=== PATIENT | male | born 1945 | race African-American/Black ===

== ENCOUNTER 2019-02-28 09:04 | Emergency (ER) | payer MEDICARE ==
[~2019-02-28] VITALS: Ht 175.3 cm; Wt 90.7 kg
[~2019-02-28 09:04] MED LIST: TRAM50TA PO
[2019-02-28 09:34] LABS: BILIRUBIN,URINE NEGATIVE (NEG); CLARITY,URINE CLEAR; COLOR,URINE YELLOW; NITRITE,URINE NEGATIVE (NEG); PH,URINE 5.5; PROTEIN,URINE NEGATIVE (NEG-TRACE)
--- NOTE | 2019-02-28 09:36 | PHYS DOC ---
Past Medical History Past Medical History: STD Past Surgical History: Other Additional Past Surgical Histo: R thumb sx Alcohol Use: None Drug Use: None Adult General Chief Complaint Chief Complaint: PENIS PROBLEM HPI HPI 73 y/o male presents to ER with complaints of dysuria which is been ongoing for several years. Patient reports he has seen a urologist for this problem but hasn't had any recent follow-up. Patient reports he thinks pain has been gradually worsening. He denies hematuria, fever, nausea or vomiting, lesions/rash, concerns for STDs, or inability to urinate. Patient reports he has had sexual intercourse within the past 48 hours and did have some pain at the tip of his penis during intercourse. Patient reports he has had no new sexual partners. Patient denies discharge. Patient denies past STD history. Patient denies taking any [id number]-[id number] medications for pain as pain has been tolerable. Review of Systems Review of Systems Constitutional: Denies fever or chills [] Eyes: Denies change in visual acuity, redness, or eye pain [] HENT: Denies nasal congestion or sore throat [] Respiratory: Denies cough or shortness of breath [] Cardiovascular: No additional information not addressed in HPI [] GI: Denies abdominal pain, nausea, vomiting, bloody stools or diarrhea [] : Denies hematuria. Reports tenderness on tap of penis without discharge or rash/lesions. Reports dysuria without difficulty of urinating Musculoskeletal: Denies back pain or joint pain [] Integument: Denies rash or skin lesions [] Neurologic: Denies headache, focal weakness or sensory changes [] All other systems were reviewed and found to be within normal limits, except as documented in this note. Allergies Allergies Allergies Coded Allergies Type Severity Reaction Last Updated Verified No Known Drug Allergies 01/05/14 No Physical Exam Physical Exam Constitutional: Well developed, well nourished, no acute distress, non-toxic appearance. [] HENT: Normocephalic, atraumatic, oropharynx moist, no oral exudates, nose normal. [] Eyes: Pupils equal, conjunctiva normal, no discharge. [] Neck: Normal range of motion, no tenderness, supple, no stridor. [] Cardiovascular: Heart rate regular rhythm, no murmur [] Lungs & Thorax: Bilateral breath sounds clear to auscultation- resp. equal/nonlabored Abdomen: Bowel sounds normal, soft, no tenderness, no masses, no pulsatile masses. [] exam with RN at bedside for mushroom spawn maker. Uncircumcised- pt was able to retract foreskin without c/o pain. No swelling. No lesions or rash. No discharge from meatus. No gross adenopathy bilateral groin. Bilateral scrotal tenderness on palpation without palpable mass/erythema/or signs of infection. 2+ bilat. femoral Skin: Warm, dry, no erythema, no rash. [] Back: No tenderness, no CVA tenderness. [] Extremities: No tenderness, no cyanosis, no clubbing, ROM intact, no edema. [] Neurologic: Alert and oriented X 3, normal motor function, normal sensory function, no focal deficits noted. [] Psychologic: Affect normal, judgement normal, mood normal. [] Current Patient Data Vital Signs Vital Signs Date Time Temp Pulse Resp B/P (MAP) Pulse Ox O2 Delivery O2 Flow Rate FiO2 02/28/19 09:38 97.8 67 18 140/63 (88) 98 Room Air 97.8 Lab Values Laboratory Tests Test 02/28/19 09:15 Urine Collection Type Unknown Urine Color Yellow Urine Clarity Clear Urine pH 5.5 Urine Specific [facility] 1.025 Urine Protein Negative mg/dL (NEG-TRACE) Urine Glucose (UA) Negative mg/dL (NEG) Urine Ketones (Stick) Negative mg/dL (NEG) Urine Blood Negative (NEG) Urine Nitrite Negative (NEG) Urine Bilirubin Negative (NEG) Urine Urobilinogen Dipstick 1.0 mg/dL (0.2 mg/dL) Urine Leukocyte Esterase Negative (NEG) Urine RBC 0 /HPF (0-2) Urine WBC 0 /HPF (0-4) Urine Squamous Epithelial Cells Occ /LPF Urine Bacteria 0 /HPF (0-FEW) EKG EKG [] Radiology/Procedures Radiology/Procedures PROCEDURE: TESTICULAR/SCROTUM Indication: Bilateral scrotal pain. TECHNIQUE: Grayscale, color Doppler and spectral waveform images of the bilateral testicles. COMPARISON: None FINDINGS: Right testicle measures 3.3 x 3.4 x 2.3 cm and is homogeneous in echogenicity and shows evidence of blood flow. Small hydrocele. 2.0 x 1.2 x 1.1 cm simple appearing cyst is seen along the inferior aspect of the right testicle which may represent a epididymal cyst. The left testicle measures 4.0 x 3.2 x 2.2 cm without focal lesion and shows evidence of blood flow. Small hydrocele. 1.2 x 1.2 x 1.0 cm extratesticular cyst is seen along the inferior aspect of the scrotum. Bilateral varicoceles. IMPRESSION: 1. Both testicles show evidence of blood flow without focal lesion. 2. Most likely bilateral extratesticular simple cysts. 3. Small bilateral hydroceles, nonspecific. 4. Bilateral varicoceles. Electronically signed by: Zay Barriga DO (02/28/2019 11:04 AM) [facility] DICTATED and SIGNED BY: ZAY BARRIGA DO DATE: 02/28/19 0725 Course & Med Decision Making Course & Med Decision Making Pertinent Labs and Imaging studies reviewed. (See chart for details) Pt was evaluated in the ER for complaints of dysuria and penis pain. Pt had no lesions or rash on exam. Ultrasound showed small hydrocele and bilateral varico barbara otherwise unremarkable imaging as pt's US is similar to prior in his records. UA negative for infection/blood. Test results were discussed with patient. Pt has denied any difficulty urinating and has specimen was concentrated. This was discussed with patient and patient encouraged to increase water intake daily. Patient advised on use of [id number] Tylenol and/or ibuprofen and will be provided with small quantity of Ultram. Patient was advised on scheduling appointment with urology for reevaluation and further care. Advised on avoiding sexual intercourse until symptoms improve to avoid further discomfort. Education provided on signs and symptoms to return to ER. Discharge instructions were discussed. Patient to follow-up with primary care kavita boudreaux if symptoms persist or with any concerns. Dragon Disclaimer Dragon Disclaimer This electronic medical record was generated, in whole or in part, using a voice recognition dictation system. Departure Departure Impression: Primary Impression: Penis pain Additional Impression: Dysuria Disposition: 01 HOME, SELF-CARE Condition: STABLE Patient Instructions: Dysuria Additional Instructions: Your tests were unremarkable for infection. It is important for you to follow-up with your urologist as discussed for reevaluation and further care. Drink plenty of water daily. Tylenol and/or ibuprofen as needed for pain as directed on container. Avoid sexual intercourse until pain and symptoms subside. Scripts Tramadol Hcl (ULTRAM) 50 Mg Tablet 50 MG PO Q6HRS PRN for PAIN, #8 TAB 0 Refills No drinking alcohol or driving while taking this medicine Prov: RODDY FUENTES APRN 02/28/19 Problem Qualifiers RODDY FUENTES APRN Feb 28, 2019 09:36
[2019-02-28 09:38] VITALS: BP 140/63
[2019-02-28 10:00] LABS: BACTERIA,URINE 0 /HPF (0-FEW); RBC,URINE 0 /HPF (0-2); WBC,URINE 0 /HPF (0-4)
[2019-02-28 10:01] LABS: SQUAMOUS EPITHELIAL CELL,UR OCC /LPF
--- NOTE | 2019-02-28 11:07 | RAD ---
Indication: Bilateral scrotal pain. TECHNIQUE: Grayscale, color Doppler and spectral waveform images of the bilateral testicles. COMPARISON: None FINDINGS: Right testicle measures 3.3 x 3.4 x 2.3 cm and is homogeneous in echogenicity and shows evidence of blood flow. Small hydrocele. 2.0 x 1.2 x 1.1 cm simple appearing cyst is seen along the inferior aspect of the right testicle which may represent a epididymal cyst. The left testicle measures 4.0 x 3.2 x 2.2 cm without focal lesion and shows evidence of blood flow. Small hydrocele. 1.2 x 1.2 x 1.0 cm extratesticular cyst is seen along the inferior aspect of the scrotum. Bilateral varicoceles. IMPRESSION: 1. Both testicles show evidence of blood flow without focal lesion. 2. Most likely bilateral extratesticular simple cysts. 3. Small bilateral hydroceles, nonspecific. 4. Bilateral varicoceles. Electronically signed by: Zay Hunter DO (02/28/2019 11:04 AM) [facility]
[2019-02-28] MEDS ORDERED: TRAM-48 PO (11:16)
== END 2019-02-28 11:45 | disposition home or self-care (01) ==
LOC: ER 09:04
DX: N48.89 Other specified disorders of penis (principal); R30.0 Dysuria
CPT/HCPCS: 76870; 81001; 87491; 87591; 99285-25

== ENCOUNTER 2021-05-03 14:31 | Emergency (ER) | payer MEDICARE, OTHER ==
[~2021-05-03] VITALS: Ht 175.3 cm; Wt 91.0 kg
[~2021-05-03 14:31] MED LIST changes: +TRAM-48 PO
--- NOTE | 2021-05-03 15:51 | RAD ---
XR BILATERAL HIP (WITH OR WITHOUT PELVIS) 2 VIEWS_RIGHT Clinical indications: Reason: pain x 2 weeks / Spl. Instructions: / History: Findings: No acute fracture or dislocation or osteolytic process is evident. IMPRESSION: No acute osseous abnormality is evident. Electronically signed by: Malik Gaviria MD (05/03/2021 3:49 PM) [id number]
[2021-05-03 16:35] VITALS: BP 138/65
--- NOTE | 2021-05-03 16:46 | PHYS DOC ---
Past Medical History Past Medical History: No Pertinent History, STD Past Surgical History: Other Additional Past Surgical Histo: R thumb sx Smoking Status: Never Smoker Alcohol Use: None Drug Use: None General Adult EDM: Chief Complaint: HIP PAIN HPI: HPI: Patient is a 76 year old female who presents the ED today complaining of 10 out of 10 right hip pain radiating to the right thigh, symptoms began a week ago. Patient reports symptoms are worse on lifting the leg up. Patient denies any injuries. Denies any numbness or tingling to bilateral lower extremities. Denies any loss of bowel/bladder function. Describes the pain as sharp and intermittent. Review of Systems: Review of Systems: Constitutional: Denies fever or chills. [] Musculoskeletal: Reports right hip pain radiating to the right thigh, denies any back pain Integument: Denies rash. [] Neurologic: Denies headache, focal weakness or sensory changes. [] ] Psychiatric: Denies depression or anxiety. [] Heart Score: C/O Chest Pain: N/A Risk Factors: Risk Factors: DM, Current or recent (<one month) smoker, HTN, HLP, family history of CAD, obesity. Risk Scores: Score 0 - 3: 2.5% MACE over next 6 weeks - Discharge Home Score 4 - 6: 20.3% MACE over next 6 weeks - Admit for Clinical Observation Score 7 - 10: 72.7% MACE over next 6 weeks - Early Invasive Strategies Allergies: Allergies: Allergies Coded Allergies Type Severity Reaction Last Updated Verified No Known Drug Allergies 01/05/14 No Physical Exam: PE: Constitutional: Well developed, well nourished, no acute distress, non-toxic appearance. [] Skin: Warm, dry, no erythema, no rash. [] Back: No tenderness, no CVA tenderness. [] Extremities: Right lower extremity with no obvious deformity. Tenderness on palpation of the right lateral hip. Full active as well as passive range of motion to the right lower extremity. +2 right pedal pulse. Cap refill less than 2 seconds of right lower extremity. Neurologic: Alert and oriented X 3, normal motor function, normal sensory function, no focal deficits noted. [] Psychologic: Affect normal, judgement normal, mood normal. [] Current Patient Data: Vital Signs: Vital Signs Date Time Temp Pulse Resp B/P (MAP) Pulse Ox O2 Delivery O2 Flow Rate FiO2 05/03/21 15:12 97.8 76 16 116/67 (83) 97 Room Air 97.8 EKG: EKG: [] Radiology/Procedures: Radiology/Procedures: []PROCEDURE: HIP RIGHT 2V WITH PELVIS XR BILATERAL HIP (WITH OR WITHOUT PELVIS) 2 VIEWS_RIGHT Clinical indications: Reason: pain x 2 weeks / Spl. Instructions: / History: Findings: No acute fracture or dislocation or osteolytic process is evident. IMPRESSION: No acute osseous abnormality is evident. Electronically signed by: Matthew Gaviria MD (05/03/2021 3:49 PM) [id number] DICTATED and SIGNED BY: MATTHEW GAVIRIA MD DATE: 05/03/21 [id number] Course & Med Decision Making: Course & Med Decision Making Pertinent Labs and Imaging studies reviewed. (See chart for details) This is 76-year-old male patient presented to the ED today with right hip pain, symptoms began a week ago. Patient is ambulating. Right hip x-rays interpreted by radiologist are negative for any acute findings. Discharged home. Follow- up with PCP and orthopedic doctor in 1 week Kristin Disclaimer: Kristin Disclaimer: This electronic medical record was generated, in whole or in part, using a voice recognition dictation system. Departure Departure Impression: Primary Impression: Acute right hip pain Disposition: 01 HOME / SELF CARE / HOMELESS Condition: STABLE Referrals: UNKNOWN PCP NAME (PCP) LEE COPELAND MD follow up in one week Patient Instructions: Hip Pain Additional Instructions: You were evaluated in the emergency room for right hip pain, your right hip x- rays were negative for any acute findings. Try to ice and elevate. Follow-up with your doctor in 1 week with the provided orthopedic doctor. Scripts Diclofenac Sodium (Voltaren Arthritis Pain) 20 Gm Gel..gram. 1 GENEVIEVE TP BID PRN for PAIN, #20 EACH Prov: RADHAALIVIA Manas REYES 05/03/21 Cyclobenzaprine Hcl (CYCLOBENZAPRINE HCL) 10 Mg Tablet 1 TAB PO TID, #30 TAB Prov: RADHAALIVIA APRN 05/03/21 WILYALIVIA ROSSI Manas REYES May 03, 2021 16:46
[2021-05-03] MEDS ORDERED: DICL20GE TP (16:48)
[2021-05-03] MEDS ORDERED: CYCL10TA2 PO (16:48)
== END 2021-05-03 16:53 | disposition home or self-care (01) ==
LOC: ER 14:31
DX: M25.551 Pain in right hip (principal)
CPT/HCPCS: 73502; 99283